=== PATIENT | female | born 1985 | race Caucasian/White ===

== ENCOUNTER 2018-07-25 12:05 | Emergency (ER) | payer OTHER ==
[2018-07-25 12:29] VITALS: BP 127/64; PULSE 76; TEMP 98; BMI 25.4
--- NOTE | 2018-07-25 13:02 | PDOC ---
History of Present Illness - General Chief Complaint: Injury Stated Complaint: FINGER INJURY Time Seen by Provider: 07/25/18 12:53 History Source: Patient Exam Limitations: No Limitations - History of Present Illness Initial Comments: 07/25/18 13:03 33 year old female with no significant medical history has surgical history of c -section x 2 presents with injury to left hand. Patient reports using left hand to break her fall 3 days ago. Since then with pain in left hand and wrist, and inability to move left index finger freely. Denies numbness or tingling. Occurred: reports: other (3 days ago ) Severity: reports: mild Pain Location: reports: upper extremity Method of Injury: Yes: fall Modifying Factors: improves with: immobilization Loss of Consciousness: no loss of consciousness Associated Symptoms (Fall): denies symptoms Past History - Travel Traveled outside of the country in the last 30 days: No - Past Medical History Allergies/Adverse Reactions: Allergies Allergy/AdvReac Type Severity Reaction Status Date / Time No Known Allergies Allergy Verified 07/25/18 12:30 Home Medications: Ambulatory Orders Ibuprofen 600 mg PO TID #20 tablet 07/25/18 COPD: No CHF: No - Suicide/Smoking/Psychosocial Hx Smoking History: Never smoked Have you smoked in the past 12 months: No Number of Cigarettes Smoked Daily: 10 Information on smoking cessation initiated: No Hx Alcohol Use: No Drug/Substance Use Hx: No Trauma Specific PMHX - Complaint Specific PMHX Arthritis: No Back Injury: No Neck Injury: No Hx Sacro Iliac Joint Dysfunction: No Review of Systems - Review of Systems Able to Perform ROS?: Yes Is the patient limited Portuguese proficient: No Constitutional: No: Chills, Fever, Malaise, Weakness HEENTM: No: Nose Congestion, Throat Pain Respiratory: No: Cough, Orthopnea, Shortness of Breath Cardiac (ROS): No: Chest Pain, Lightheadedness, Palpitations ABD/GI: No: Abdominal Distended, Blood Streaked Bowels, Difficulty Swallowing, Poor Appetite, Indigestion : No: Burning, Dysuria, Discharge, Incontinence, Pain Musculoskeletal: Yes: Other (left hand and wrist injury). No: Back Pain Neurological: No: Headache, Numbness, Paresthesia, Tremors, Weakness Psychiatric: No: Stressors, Change in Appetite Endocrine: No: Excessive Sweating, Intolerance to Heat, Increased Urine, Unexplained Weight Gain *Physical Exam - Vital Signs Last Vital Signs Temp Pulse Resp BP Pulse Ox 98 F 76 16 127/64 100 07/25/18 12:28 07/25/18 12:28 07/25/18 12:28 07/25/18 12:28 07/25/18 12:28 - Physical Exam General Appearance: Yes: Nourished, Appropriately Dressed HEENT: positive: EOMI, Pharynx Normal Neck: positive: Supple. negative: Lymphadenopathy (R), Lymphadenopathy (L) Respiratory/Chest: positive: Lungs Clear. negative: Respiratory Distress Cardiovascular: positive: Regular Rhythm, Regular Rate, S1, S2 Musculoskeletal: positive: Normal Inspection Extremity: positive: Normal Capillary Refill, Pedal Edema, Other (+tenderness with rom of left hand, + swelling of left index finger, pain with flexing of finger) Neurologic: positive: telecommunications analyst II-XII NML intact Moderate Sedation - Procedure Monitoring Vital Signs: Procedure Monitoring Vital Signs Temperature 98 F 07/25/18 12:28 Pulse Rate 76 07/25/18 12:28 Respiratory Rate 16 07/25/18 12:28 Blood Pressure 127/64 07/25/18 12:28 O2 Sat by Pulse Oximetry (%) 100 07/25/18 12:28 Medical Decision Making - Medical Decision Making 07/25/18 13:15 33 year old female with no significant medical history has surgical history of c -section x 2 presents with injury to left hand. Plan urine preg xray *DC/Admit/Observation/Transfer Diagnosis at time of Disposition: Finger injury Qualifiers: Encounter type: initial encounter Laterality: right Qualified Code(s): S69.91XA - Unspecified injury of right wrist, hand and finger(s), initial encounter - Discharge Dispostion Disposition: HOME Condition at time of disposition: Good Decision to Admit order: No - Prescriptions Prescriptions: Ibuprofen 600 mg PO TID #20 tablet - Referrals Referrals: Izaiah Case MD [Primary Care Provider] - - Patient Instructions Additional Instructions: Activity as tolerated Please call doctor for follow up appointment Use splint for 1 week or until receive call back Apply ice for 20 minutes 3 to 4 times daily for 2 more days - Post Discharge Activity Forms/Work/School Notes: Back to Work
== END 2018-07-25 15:04 | disposition home or self-care (01) ==
LOC: JERFT 12:05
PROC: 2W3CX1Z Immobilization of Right Lower Arm using Splint (ICD-10-PCS; principal; 2018-07-25)
DX: S69.81XA Other specified injuries of right wrist, hand and finger(s), initial encounter (principal); W18.39XA Other fall on same level, initial encounter; Y93.89 Activity, other specified; Y92.89 Other specified places as the place of occurrence of the external cause; Y99.8 Other external cause status
CPT/HCPCS: 29125; 73110-TC-LR-FY; 73130-TC-LT-FY; 84703; 99281-25

== ENCOUNTER 2018-12-08 00:02 | Emergency (ER) | payer OTHER | END 2018-12-08 01:27 | disposition home or self-care (01) | LOC: FER 00:02 | DX: N83.202 Unspecified ovarian cyst, left side (principal) ==